=== PATIENT | male | born 1985 | race Hispanic/Latino ===

== ENCOUNTER 2025-01-14 23:14 | Emergency (ER) | payer SELFPAY ==
[2025-01-15] MEDS ORDERED: cloNIDine 0.1 MG TAB ONE (00:33)
[2025-01-15] MEDS ORDERED: diphenhydrAMINE 50 MG/ML VIAL ONE (00:33)
[2025-01-15 00:43] LABS: #Basophils 0.06 10x3/uL (0.0-0.2); #Eosinophils 0.11 10x3/uL (0.0-0.5); #Monocytes 1.25 10x3/uL (0.0-1.1); #Neutrophils 5.82 10x3/uL (1.5-8.4); %Basophils 0.6 % (0.0-2.0); %Eosinophils 1.1 % (0.0-6.0); %Lymphocytes 27.4 % (18.0-47.0); %Monocytes 12.5 % (0.0-10.0); %Neutrophils 58.1 % (40.0-75.0); Hematocrit 42.2 % (38.8-50.0); Hemoglobin 14.7 g/dL (13.5-17.5); Mean Corpuscular Hemoglobin 32.5 pg (27.0-33.0); Mean Corpuscular Volume 93.4 fL (81.2-95.1); Platelet Count 169 10x3/uL (150-450); Red Blood Cell (RBC) Count 4.52 10x6/uL (4.32-5.72); White Blood Cell (WBC) Count 10.02 10x3/uL (3.5-10.5)
[2025-01-15 00:59] LABS: Troponin I Less than 0.010 ng/mL (< 0.028)
[2025-01-15 01:32] LABS: ALT (SGPT) 33 U/L (Less than 45); AST (SGOT) 36 U/L (11-34); Albumin 3.6 g/dL (3.1-4.5); Alkaline Phosphatase 98 U/L (40-110); Anion Gap 15 mmol/L (10-20); BUN (Urea Nitrogen) 20 mg/dL (8.9-20.6); Bilirubin, Total 0.8 mg/dL (0.3-1.2); Calc. Creatinine Clearance 0 mL/min (70-130); Calcium 8.8 mg/dL (7.8-10.44); Carbon Dioxide 23 mmol/L (22-29); Chloride 108 mmol/L (98-107); Globulin 3.1 g/dL (2.4-3.5); Glucose 140 mg/dL (70-105); Potassium 3.3 mmol/L (3.5-5.1); Sodium 143 mmol/L (136-145)
== END 2025-01-15 01:40 | disposition home or self-care (01) ==
LOC: CSHERS 23:14
DX: F14.10 Cocaine abuse, uncomplicated (principal); F10.180 Alcohol abuse with alcohol-induced anxiety disorder; Y90.0 Blood alcohol level of less than 20 mg/100 ml
CPT/HCPCS: 80053; 80307; 83880; 84484; 85025; 93005; 96374; J1200